=== PATIENT | female | born 1950 | race Caucasian/White ===

== ENCOUNTER 2022-06-08 20:12 | Emergency (ER) | payer MEDICARE ==
[2022-06-08] MEDS ORDERED: NAPROSYN500 MG PO (21:42)
[2022-06-08] MEDS ORDERED: AMOX TR-K CLV1 EAC4 PO (21:42)
== END 2022-06-08 21:56 | disposition home or self-care (01) ==
LOC: ER1 20:12
DX: K05.10 Chronic gingivitis, plaque induced (principal); I10 Essential (primary) hypertension
CPT/HCPCS: 99282